=== PATIENT | female | born 1935 | race Caucasian/White ===

== ENCOUNTER 2017-12-10 05:53 | Day surgery (SDC) | payer MEDICARE, BC ==
[2017-12-09 15:05] LABS: PARTIAL THROMBOPLASTIN TIME 26 SECONDS (22-32); PROTHROMBIN TIME 10.6 SECONDS (9.0-12.0)
[2017-12-09 15:06] LABS: ALBUMIN 3.8 G/DL (3.4-5.0); ANION GAP 8 (8-16); BLOOD UREA NITROGEN 12 MG/DL (7-18); BUN/CREATININE RATIO 11.1 (6.6-38.0); CALCIUM 9.1 MG/DL (8.5-10.1); CHLORIDE 106 MMOL/L (99-107); CREATININE 1.08 MG/DL (0.40-0.90); GLUCOSE 104 MG/DL (70-104); SODIUM 143 MMOL/L (135-145); TOTAL CARBON DIOXIDE 29.1 MMOL/L (24-32); eGFR 49 ML/MIN
[2017-12-09 15:18] LABS: HEMATOCRIT 39.8 % (35.0-45.0); HEMOGLOBIN 13.5 g/dl (12.0-16.0); LYMPHOCYTES % (AUTO) 13.2 % (21-51); MEAN CORPUSCULAR HEMOGLOBIN 32.7 PG (27.0-31.0); MEAN CORPUSCULAR VOLUME 96.2 FL (78-98); MEAN PLATELET VOLUME 8.8 FL (7.4-10.4); NEUTROPHILS % (AUTO) 79.5 % (42-75); PLATELET COUNT 217 X10'3 (140-440); RED BLOOD COUNT 4.14 X10'6 (4.20-5.60); RED CELL DISTRIBUTION WIDTH 13.5 % (11.5-14.5); WHITE BLOOD COUNT 6.3 X10'3 (4.5-11.0)
[2017-12-09 15:19] LABS: BASOPHILS % (AUTO) 0.6 % (0-1); EOSINOPHILS # (AUTO) 0.1 X10'3 (0-0.9); EOSINOPHILS % (AUTO) 0.9 % (0-6); LYMPHOCYTES # (AUTO) 0.8 X10'3 (1.1-4.8); MONOCYTES # (AUTO) 0.4 X10'3 (0-0.9); MONOCYTES % (AUTO) 5.8 % (2-12)
[2017-12-10] VITALS (12 sets, daily range): BP systolic 106–151; BP diastolic 64–83
[~2017-12-10] VITALS: Ht 177.8 cm; Wt 69.8 kg
[2017-12-10] MEDS ORDERED: ceFAZolin 1,000 MG/D5W 50ML IVPB Premixed bag IV ONE (06:20)
[2017-12-10] MEDS ORDERED: normal saline 1000ml 1,000 ML IV SCH ×2 (06:20→12:50)
[2017-12-10] MEDS ORDERED: ROSU20TA PO (06:35)
[2017-12-10] MEDS ORDERED: FOLI0.4T2 PO (06:35)
[2017-12-10] MEDS ORDERED: POTA2TAB17 PO (06:35)
[2017-12-10] MEDS ORDERED: UBID100C45 PO (06:35)
[2017-12-10] MEDS ORDERED: CALC-97 PO (06:35)
[2017-12-10] MEDS ORDERED: MULT-38 PO (06:35)
[2017-12-10] MEDS ORDERED: CLOP75TA15 PO (06:35)
[2017-12-10] MEDS ORDERED: GLUC-99 PO (06:35)
[2017-12-10] MEDS ORDERED: APIX5TAB3 PO (06:35)
[2017-12-10] MEDS ORDERED: NAPR220T67 PO (06:35)
[2017-12-10] MEDS ORDERED: AMIO200T40 PO (06:35)
[2017-12-10] MEDS ORDERED: LISI10TA4 PO (06:35)
[2017-12-10] MEDS ORDERED: ceFAZolin 1000mg inj ONE (07:34)
[2017-12-10] MEDS ORDERED: ceFAZolin 1GM/D5W- ADD-VANTAGE 50 ML IV ONE (07:34)
[2017-12-10] MEDS ORDERED: lidocaine 1%/epinephrine 1:100,000 injection 50ml vial ONE (07:34)
[2017-12-10] MEDS ORDERED: fentaNYL/PF 50MCG/1 ML 2ML syringe ONE (07:59)
[2017-12-10] MEDS ORDERED: midazolam 2 mg/2 ml injection ONE ×2 (07:59→08:50)
[2017-12-10] MEDS ORDERED: HYDROcodone/acetaminophen 10/325mg tab PO PRN (11:20)
[2017-12-10] MEDS ORDERED: HYDROcodone/acetaminophen 5mg/325mg tablet PO PRN (11:20)
[2017-12-10] MEDS ORDERED: ceFAZolin 1GM/D5W- ADD-VANTAGE 50 ML IV SCH (15:00)
== END 2017-12-10 17:20 | disposition home or self-care (01) ==
LOC: SSTAY O 05:53
PROVIDERS: ATTEND Internal Medicine Cardiovascular Disease
DX: I49.5 Sick sinus syndrome (principal); I48.0 Paroxysmal atrial fibrillation; I10 Essential (primary) hypertension; E78.5 Hyperlipidemia, unspecified; I45.81 Long QT syndrome; I25.10 Atherosclerotic heart disease of native coronary artery without angina pectoris; I47.1 Supraventricular tachycardia; M19.90 Unspecified osteoarthritis, unspecified site; Z98.890 Other specified postprocedural states
CPT/HCPCS: 33208; 36415; 71046; 80048; 85025; 85610; 85730; 93005; 99152; 99153; A6449; C1785; C1894; C1898; J0690; J2250; J3010; J3490; J7030; A4620

== ENCOUNTER 2018-02-28 13:55 | Emergency (ER) | payer MEDICARE, BC ==
[~2018-02-28] VITALS: Ht 154.9 cm; Wt 66.8 kg
[~2018-02-28 13:55] MED LIST: AMIO200T40 PO; APIX5TAB3 PO; CALC-97 PO; CLOP75TA15 PO; FOLI0.4T2 PO; GLUC-99 PO; LISI10TA4 PO; MULT-38 PO; NAPR220T67 PO; POTA2TAB17 PO; ROSU20TA PO; UBID100C45 PO
[2018-02-28 13:58] VITALS: BP 161/91
[2018-02-28] MEDS ORDERED: WHEE1EAC12 MC (14:46)
== END 2018-02-28 16:12 | disposition home or self-care (01) ==
LOC: ER 13:55
DX: S92.355A Nondisplaced fracture of fifth metatarsal bone, left foot, initial encounter for closed fracture (principal); Z88.6 Allergy status to analgesic agent; Z88.8 Allergy status to other drugs, medicaments and biological substances; Z91.040 Latex allergy status; Z79.899 Other long term (current) drug therapy; X50.1XXA Overexertion from prolonged static or awkward postures, initial encounter; Y93.89 Activity, other specified; Y92.89 Other specified places as the place of occurrence of the external cause; Y99.9 Unspecified external cause status
CPT/HCPCS: 29515; 73610; 73630; 99283; 99284

== ENCOUNTER 2018-03-15 09:15 | Outpatient (CLI) | payer MEDICARE, BC ==
[~2018-03-15 09:15] MED LIST changes: +WHEE1EAC12 MC
[2018-03-15 09:20] VITALS: BP 119/86
== END 2018-03-15 09:53 | disposition home or self-care (01) ==
LOC: ORTHO 09:15
PROVIDERS: ATTEND Nurse Practitioner Family
DX: S92.352A Displaced fracture of fifth metatarsal bone, left foot, initial encounter for closed fracture (principal); I10 Essential (primary) hypertension; Z79.899 Other long term (current) drug therapy; Z88.6 Allergy status to analgesic agent; Z91.040 Latex allergy status; Z88.8 Allergy status to other drugs, medicaments and biological substances; Z95.0 Presence of cardiac pacemaker; W18.39XA Other fall on same level, initial encounter; Y93.89 Activity, other specified; Y92.89 Other specified places as the place of occurrence of the external cause; Y99.8 Other external cause status
CPT/HCPCS: 73630; 99213

== ENCOUNTER 2018-04-05 09:24 | Outpatient (CLI) | payer MEDICARE, BC ==
[2018-04-05 09:26] VITALS: BP 157/88
== END 2018-04-05 10:02 | disposition home or self-care (01) ==
LOC: ORTHO 09:24
PROVIDERS: ATTEND Nurse Practitioner Family
DX: S92.352G Displaced fracture of fifth metatarsal bone, left foot, subsequent encounter for fracture with delayed healing (principal); S93.412D Sprain of calcaneofibular ligament of left ankle, subsequent encounter; I10 Essential (primary) hypertension; Z98.890 Other specified postprocedural states; Z95.0 Presence of cardiac pacemaker; Z88.6 Allergy status to analgesic agent; Z91.040 Latex allergy status; W18.39XD Other fall on same level, subsequent encounter
CPT/HCPCS: 73630; G0463

== ENCOUNTER 2018-05-20 10:19 | Outpatient (CLI) | payer MEDICARE, BC ==
[~2018-05-20 10:19] MED LIST changes: -ROSU20TA PO; +ROSU20TA2 PO
[2018-05-20 10:27] VITALS: BP 149/88
== END 2018-05-20 10:51 | disposition home or self-care (01) ==
LOC: ORTHO 10:19
PROVIDERS: ATTEND Nurse Practitioner Family
DX: S92.352K Displaced fracture of fifth metatarsal bone, left foot, subsequent encounter for fracture with nonunion (principal); S93.412D Sprain of calcaneofibular ligament of left ankle, subsequent encounter; I10 Essential (primary) hypertension; Z98.890 Other specified postprocedural states; Z95.0 Presence of cardiac pacemaker; Z91.040 Latex allergy status; W18.39XD Other fall on same level, subsequent encounter
CPT/HCPCS: 73630; 99213

== ENCOUNTER 2018-06-17 11:28 | Outpatient (CLI) | payer MEDICARE, BC ==
[2018-06-17 11:40] VITALS: BP 145/87
== END 2018-06-17 12:40 | disposition home or self-care (01) ==
LOC: ORTHO 11:28
PROVIDERS: ATTEND Nurse Practitioner Family
DX: S92.352D Displaced fracture of fifth metatarsal bone, left foot, subsequent encounter for fracture with routine healing (principal); M19.072 Primary osteoarthritis, left ankle and foot; I10 Essential (primary) hypertension; Z88.6 Allergy status to analgesic agent; Z91.040 Latex allergy status; Z88.8 Allergy status to other drugs, medicaments and biological substances; Z79.899 Other long term (current) drug therapy; Z95.0 Presence of cardiac pacemaker; X58.XXXD Exposure to other specified factors, subsequent encounter
CPT/HCPCS: 73630; 99213

== ENCOUNTER 2021-07-28 19:18 | Emergency (ER) | payer MEDICARE, BC ==
[~2021-07-28] VITALS: Ht 157.5 cm; Wt 63.6 kg
[~2021-07-28 19:18] MED LIST changes: -AMIO200T40 PO; +AMIO200T61 PO; -FOLI0.4T2 PO; +FOLI0.4T6 PO; +LISI10TA27 PO; -LISI10TA4 PO
[2021-07-28 20:07] LABS: BASOPHILS % (AUTO) 0.9 % (0-1); EOSINOPHILS # (AUTO) 0.2 X10'3 (0-0.9); EOSINOPHILS % (AUTO) 3.1 % (0-6); HEMATOCRIT 38.3 % (35.0-45.0); HEMOGLOBIN 12.8 g/dl (12.0-16.0); LYMPHOCYTES # (AUTO) 0.9 X10'3 (1.1-4.8); LYMPHOCYTES % (AUTO) 18.3 % (21-51); MEAN CORPUSCULAR HGB CONC 33.3 g/dL (33.0-36.5); MEAN CORPUSCULAR VOLUME 99.2 FL (78-98); MEAN PLATELET VOLUME 7.8 FL (7.4-10.4); MONOCYTES # (AUTO) 0.5 X10'3 (0-0.9); MONOCYTES % (AUTO) 10.5 % (2-12); NEUTROPHILS # (AUTO) 3.4 X10'3 (1.8-7.7); NEUTROPHILS % (AUTO) 67.2 % (42-75); PLATELET COUNT 216 X10'3 (140-440); RED BLOOD COUNT 3.87 X10'6 (4.20-5.60); RED CELL DISTRIBUTION WIDTH 14.6 % (11.5-14.5); WHITE BLOOD COUNT 5.1 X10'3 (4.5-11.0)
[2021-07-28 20:24] LABS: ALANINE AMINOTRANSFERASE 21 U/L (12-78); ALBUMIN 3.9 G/DL (3.4-5.0); ALBUMIN/GLOBULIN RATIO 1.1 (1.1-1.5); ALKALINE PHOSPHATASE 65 IU/L (46-116); ANION GAP 7 (8-16); ASPARTATE AMINO TRANSFERASE 21 U/L (10-37); BILIRUBIN,TOTAL 0.4 MG/DL (0.1-1.0); BLOOD UREA NITROGEN 18 MG/DL (7-18); BUN/CREATININE RATIO 16.8 (6.6-38.0); CALCIUM 8.7 MG/DL (8.5-10.1); CHLORIDE 108 MMOL/L (99-107); CREATININE 1.07 MG/DL (0.40-0.90); GLUCOSE 105 MG/DL (70-104); POTASSIUM 4.5 MMOL/L (3.5-5.1); SODIUM 145 MMOL/L (135-145); TOTAL CARBON DIOXIDE 29.9 MMOL/L (24-32); TOTAL PROTEIN 7.3 G/DL (6.4-8.2); eGFR 49 ML/MIN
[2021-07-28 23:07] VITALS: BP 154/99
== END 2021-07-28 23:09 | disposition home or self-care (01) ==
LOC: ER 19:19
DX: R07.89 Other chest pain (principal); Z95.0 Presence of cardiac pacemaker; Z88.6 Allergy status to analgesic agent; Z88.8 Allergy status to other drugs, medicaments and biological substances; Z91.040 Latex allergy status; Z79.899 Other long term (current) drug therapy
CPT/HCPCS: 36415; 71045; 80053; 83880; 84484; 85025; 93005; 99285

== ENCOUNTER 2021-12-04 07:00 | Outpatient (CLI) | payer MEDICARE, BC ==
[2021-12-04 07:29] LABS: TOTAL HEMOGLOBIN 13.2 G/dl (12.0-16.0)
== END 2021-12-04 23:59 | disposition home or self-care (01) ==
LOC: RT 07:00
PROVIDERS: ATTEND Internal Medicine Cardiovascular Disease
DX: I70.0 Atherosclerosis of aorta (principal); Q25.46 Tortuous aortic arch; M47.814 Spondylosis without myelopathy or radiculopathy, thoracic region; M19.011 Primary osteoarthritis, right shoulder; M19.012 Primary osteoarthritis, left shoulder; Z79.899 Other long term (current) drug therapy
CPT/HCPCS: 71046; 85018; 94010; 94727; 94729; J7121